=== PATIENT | male | born 1940 | race Caucasian/White ===

== ENCOUNTER 2017-05-24 17:44 | Inpatient (IN) | payer MEDICARE, BC ==
[2017-05-24] VITALS (7 sets, daily range): BP systolic 98–129; BP diastolic 56–73; PULSE 63–75; RESP 16–24; TEMP 98.3–99; O2SAT 96–99
[~2017-05-24] VITALS: Ht 175.3 cm; Wt 66.0 kg
[~2017-05-24 17:44] MED LIST: CHLO25 PO
[2017-05-24] MEDS ORDERED: ADVA100A INH (18:21)
[2017-05-24] MEDS ORDERED: ASPI81CH7 CHEW (18:21)
[2017-05-24] MEDS ORDERED: CARV25TA PO (18:21)
[2017-05-24] MEDS ORDERED: SIMV20TA PO (18:21)
[2017-05-24] MEDS ORDERED: LISI10TA3 PO (18:21)
[2017-05-24] MEDS ORDERED: SODIUM CHLOR 0.9% 1000 ML INJ 1,000 ML IV ONE (18:32)
--- NOTE | 2017-05-24 18:44 | PD ---
HPI Chief Complaint: Syncope/Near-Syncope Time Seen by Provider: 18:28 Travel History International Travel<30 days: No Contact w/Intl Traveler<30days: No Traveled to known affect area: No History of Present Illness HPI Patient is a 76-year-old male with history of coronary artery disease with bypass surgery, alcoholism, presents to ER with complaints of syncope. Patient' s reports that she found him on the tile floor near the kitchen around 5 PM this afternoon. Reports that she was unsure how long he was laying unresponsive on the ground. Reports that when she found him, it took him 3-4 minutes to become responsive. Patient reports that he is unsure what happened today, patient reports that he remembers having lunch and doesn't remember the rest of his day. reports that patient has been having more "drop attacks" recently. EMS reported the patient smells of alcohol, patient denies use of alcohol today. Patient reports that he drinks alcohol intermittently. Patient denies any headache or dizziness at this time. Patient denies any chest pain or shortness of breath. 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 Patient with no complaints at this time. PFSH Past Medical History Cardiac Catheterization: Yes COPD: Yes Coronary Artery Disease: Yes Diminished Hearing: No Hypertension: Yes Immunizations Current: Yes Myocardial Infarction: Yes Tetanus Vaccination: Unknown Past Surgical History Appendectomy: Yes Cardiac Surgery: Yes Coronary Artery Bypass Graft: Yes (X4) Tonsillectomy: Yes Other Surgery: Yes (RIGHT KNEE) Social History Alcohol Use: Yes (5 GLASSES VODKA PER DAY) Tobacco Use: Yes (1/2 PPD) Substance Use: No Allergies-Medications (Allergen,Severity, Reaction): Coded Allergies: codeine (Unverified Allergy, Unknown, 05/24/17) Reported Meds & Prescriptions Reported Meds & Active Scripts Active Reported Advair Diskus Inh (Fluticasone-Salmeterol Inh) 100-50 Mcg/Blist Aer 1 Puff INH BID Rinse mouth after use. Simvastatin 20 Mg Tab 20 Mg PO DAILY Carvedilol 25 Mg Tab 25 Mg PO BID Aspirin Children's (Aspirin) 81 Mg Chew 81 Mg CHEW DAILY Lisinopril 10 Mg Tab 10 Mg PO DAILY Review of Systems General / Constitutional: No: Fever Eyes: No: Visual changes HENT: No: Headaches Cardiovascular: Positive: Syncope, No: Chest Pain or Discomfort, Palpitations, Irregular Rhythm, Dyspnea on exertion, Varicosities, Edema Respiratory: No: Shortness of Breath Gastrointestinal: No: Abdominal Pain Genitourinary: No: Dysuria Musculoskeletal: No: Pain Skin: No Rash Neurologic: No: Weakness Psychiatric: No: Depression Endocrine: No: Polydipsia Hematologic/Lymphatic: No: Easy Bruising Physical Exam Narrative GENERAL: Mild distress SKIN: Focused skin assessment warm/dry. HEAD: Atraumatic. Normocephalic. EYES: Pupils equal and round. No scleral icterus. No injection or drainage. ENT: No nasal bleeding or discharge. Mucous membranes pink and moist. NECK: Trachea midline. No JVD. CARDIOVASCULAR: Regular rate and rhythm. No murmur appreciated. RESPIRATORY: No accessory muscle use. Clear to auscultation. Breath sounds equal bilaterally. GASTROINTESTINAL: Abdomen soft, non-tender, nondistended. Hepatic and splenic margins not palpable. MUSCULOSKELETAL: No obvious deformities. No clubbing. No cyanosis. No edema. NEUROLOGICAL: Awake and alert. No obvious cranial nerve deficits. Motor grossly within normal limits. Normal speech. PSYCHIATRIC: Flat mood and affect, patient appears confused Data Data Last Documented VS Vital Signs Date Time Temp Pulse Resp B/P (MAP) Pulse Ox O2 Delivery O2 Flow Rate FiO2 05/24/17 17:57 98.3 71 16 118/59 (78) 98 Orders Orders Complete Blood Count With Diff (05/24/17 18:32) Comprehensive Metabolic Panel (05/24/17 18:32) Magnesium (Mg) (05/24/17 18:32) B-Type Natriuretic Peptide (05/24/17 18:32) Ckmb (Isoenzyme) Profile (05/24/17 18:32) Troponin I (05/24/17 18:32) Act Partial Throm Time (Ptt) (05/24/17 18:32) Prothrombin Time / Inr (Pt) (05/24/17 18:32) Urinalysis - C+S If Indicated (05/24/17 18:32) Chest, Single Ap (05/24/17 18:32) Ct Brain W/O Iv Contrast(Rout) (05/24/17 18:32) Ct Cerv Spine W/O Contrast (05/24/17 18:32) Ecg Monitoring (05/24/17 18:32) Iv Access Insert/Monitor (05/24/17 18:32) Oximetry (05/24/17 18:32) Sodium Chloride 0.9% Flush (Ns Flush) (05/24/17 18:45) Sodium Chlor 0.9% 1000 Ml Inj (Ns 1000 M (05/24/17 18:32) Drug Screen, Random Urine (05/24/17 18:32) Alcohol (Ethanol) (05/24/17 18:32) MDM Medical Decision Making Medical Screen Exam Complete: Yes Emergency Medical Condition: Yes Medical Record Reviewed: Yes Interpretation(s) EKG 1806: NSR at 67bpm, qt/qtc: 424/440, no acute st or t wave changes Vital Signs Date Time Temp Pulse Resp B/P (MAP) Pulse Ox O2 Delivery O2 Flow Rate FiO2 05/24/17 17:57 98.3 71 16 118/59 (78) 98 Differential Diagnosis Differential includes CVA, TIA, ACS, arrhythmia, orthostatic hypotension, alcoholism, electrolyte abnormality, ICH Narrative Course 76-year-old male who presents to emergency room with his after a syncopal episode at home. Patient was found unresponsive by his on the ground at this time there is kitchen today. Patient reports that he does not remember the events of this afternoon. Patient is a poor historian at baseline, reports only history of coronary artery disease with history of bypass surgery. Patient this time with no headache or dizziness, no chest pain or shortness of breath. Patient present clinical research monitor upon arrival to the emergency room. CT of the head and neck ordered as patient did suffer a fall today. Labs including cardiac enzymes, CBC, CMP, x-ray of the chest ordered. Plan to monitor patient on clinical research monitor. Patient was signed out to oncoming physician at change of shift. Mary Grace Ruvalcaba DO May 24, 2017 18:44
[2017-05-24] MEDS ORDERED: SODIUM CHLORIDE 0.9% FLUSH 10 ML FLUSH IVF PRN (18:45)
[2017-05-24 18:50] LABS: AUTOMATED NEUTROPHIL # 5.6 TH/MM3 (1.8-7.7); BASOPHIL % 0.2 % (0.0-2.0); EOSINOPHIL # 0.1 TH/MM3 (0-0.4); HEMATOCRIT 35.1 % (39.0-51.0); LYMPH % 15.6 % (9.0-44.0); LYMPHOCYTE # 1.1 TH/MM3 (1.0-4.8); MEAN CORPUSCULAR HEMOGLOBIN 34.2 PG (27.0-34.0); MEAN CORPUSCULAR HGB CONC 34.2 % (32.0-36.0); MONO % 6.5 % (0.0-8.0); NEUT % 75.7 % (16.0-70.0); PLATELET COUNT 127 TH/MM3 (150-450); RED BLOOD COUNT 3.51 MIL/MM3 (4.50-5.90); RED CELL DISTRIBUTION WIDTH 11.8 % (11.6-17.2); WHITE BLOOD COUNT 7.3 TH/MM3 (4.0-11.0)
[2017-05-24 18:58] LABS: CHLORIDE 106 MEQ/L (98-107); HEMO FLAGS DIFF FINAL; POTASSIUM 3.1 MEQ/L (3.5-5.1); SODIUM (NA) 141 MEQ/L (136-145)
[2017-05-24 19:03] LABS: ANION GAP 8 MEQ/L (5-15); BICARBONATE 26.6 MEQ/L (21.0-32.0); BLOOD UREA NITROGEN 26 MG/DL (7-18); MAGNESIUM 1.6 MG/DL (1.5-2.5)
[2017-05-24 19:04] LABS: APTT (PATIENT) 25.2 SEC (24.3-30.1); INTERNATIONAL NORMALIZED RATIO 0.9 RATIO
[2017-05-24 19:06] LABS: ALT (GPT) 76 U/L (12-78); AST (GOT) 131 U/L (15-37); GLOMERULAR FILTRATION RATE 46 ML/MIN (>89)
[2017-05-24 19:07] LABS: TOTAL BILIRUBIN ADULT 0.7 MG/DL (0.2-1.0)
[2017-05-24 19:08] LABS: ALCOHOL 217 MG/DL (0-5)
[2017-05-24 19:09] LABS: ALKALINE PHOSPHATASE 136 U/L (45-117)
[2017-05-24 19:19] LABS: CREATINE KINASE 87 U/L (39-308)
--- NOTE | 2017-05-24 19:33 | RADRPT ---
EXAM DATE/TIME: 05/24/2017 19:12 [facility] COMPARISON: CHEST SINGLE AP, November 06, 2015, 18:48. INDICATIONS : Syncopal episode today. MEDICAL HISTORY : Hypertension. SURGICAL HISTORY : None. ENCOUNTER: Initial ACUITY: 1 day PAIN SCORE: 0/10 LOCATION: Bilateral chest FINDINGS: A single view of the chest demonstrates the lungs to be symmetrically aerated without evidence of mas s, infiltrate or effusion. The cardiomediastinal contours are unremarkable. There is evidence of pre vious cardiothoracic surgery. Osseous structures are intact. Old left-sided rib fractures. No signif icant change compared to the prior study. CONCLUSION: No acute disease. No significant change has occurred. Tomas Weber MD on May 24, 2017 at 19:31 Board Certified Radiologist. This report was verified electronically.
[2017-05-24 19:42] LABS: BLOOD, URINE LARGE (NEG); GLUCOSE,URINE NEG (NEG); KETONE, URINE NEG (NEG); NITRITE,URINE NEG (NEG)
--- NOTE | 2017-05-24 19:46 | PD ---
Physical Exam Time Seen by Provider: 19:[address] Ruvalcaba left this patient with me to check the results of the laboratory and make a disposition. Data Data Last Documented VS Vital Signs Date Time Temp Pulse Resp B/P (MAP) Pulse Ox O2 Delivery O2 Flow Rate FiO2 05/24/17 19:25 63 18 128/64 (85) 97 Room Air 05/24/17 17:57 98.3 Orders Orders Complete Blood Count With Diff (05/24/17 18:32) Comprehensive Metabolic Panel (05/24/17:32) Magnesium (Mg) (05/24/17 18:32) B-Type Natriuretic Peptide (05/24/17:32) Ckmb (Isoenzyme) Profile (05/24/17:) Troponin I (05/24/17:) Act Partial Throm Time (Ptt) (05/24/17:32) Prothrombin Time / Inr (Pt) (05/24/17 18:32) Urinalysis - C+S If Indicated (05/24/17 18:32) Chest, Single Ap (05/24/17 18:32) Ct Brain W/O Iv Contrast(Rout) (05/24/17 18:32) Ct Cerv Spine W/O Contrast (05/24/17 18:32) Ecg Monitoring (05/24/17:32) Iv Access Insert/Monitor (05/24/17:32) Oximetry (05/24/17 18:32) Sodium Chloride 0.9% Flush (Ns Flush) (05/24/17 18:45) Sodium Chlor 0.9% 1000 Ml Inj (Ns 1000 M (05/24/17 18:32) Drug Screen, Random Urine (05/24/17 18:32) Alcohol (Ethanol) (05/24/17 18:32) Orthostatic Vital Signs (05/24/17 18:41) Electrocardiogram (05/24/17 18:06) Labs Laboratory Tests Test 05/24/17 18:40 05/24/17 19:30 White Blood Count 7.3 TH/MM3 Red Blood Count 3.51 MIL/MM3 Hemoglobin 12.0 GM/DL Hematocrit 35.1 % Mean Corpuscular Volume 100.0 FL Mean Corpuscular Hemoglobin 34.2 PG Mean Corpuscular Hemoglobin Concent 34.2 % Red Cell Distribution Width 11.8 % Platelet Count 127 TH/MM3 Mean Platelet Volume 8.4 FL Neutrophils (%) (Auto) 75.7 % Lymphocytes (%) (Auto) 15.6 % Monocytes (%) (Auto) 6.5 % Eosinophils (%) (Auto) 2.0 % Basophils (%) (Auto) 0.2 % Neutrophils # (Auto) 5.6 TH/MM3 Lymphocytes # (Auto) 1.1 TH/MM3 Monocytes # (Auto) 0.5 TH/MM3 Eosinophils # (Auto) 0.1 TH/MM3 Basophils # (Auto) 0.0 TH/MM3 CBC Comment DIFF FINAL Differential Comment Prothrombin Time 10.0 SEC Prothromb Time International Ratio 0.9 RATIO Activated Partial Thromboplast Time 25.2 SEC Blood Urea Nitrogen 26 MG/DL Creatinine 1.50 MG/DL Random Glucose 86 MG/DL Total Protein 6.4 GM/DL Albumin 2.9 GM/DL Calcium Level 7.6 MG/DL Magnesium Level 1.6 MG/DL Alkaline Phosphatase 136 U/L Aspartate Amino Transf (AST/SGOT) 131 U/L Alanine Aminotransferase (ALT/SGPT) 76 U/L Total Bilirubin 0.7 MG/DL Sodium Level 141 MEQ/L Potassium Level 3.1 MEQ/L Chloride Level 106 MEQ/L Carbon Dioxide Level 26.6 MEQ/L Anion Gap 8 MEQ/L Estimat Glomerular Filtration Rate 46 ML/MIN Total Creatine Kinase 87 U/L Troponin I LESS THAN 0.02 NG/ML B-Type Natriuretic Peptide 84 PG/ML Ethyl Alcohol Level 217 MG/DL Urine Color YELLOW Urine Turbidity SLIGHT Urine pH 6.0 Urine Specific [place] 1.018 Urine Protein 100 mg/dL Urine Glucose (UA) NEG mg/dL Urine Ketones NEG mg/dL Urine Occult Blood LARGE Urine Nitrite NEG Urine Bilirubin NEG Urine Leukocyte Esterase NEG Urine RBC 0-3 /hpf Urine WBC 3-5 /hpf Urine Squamous Epithelial Cells 0-5 /hpf Urine Hyaline Casts 6-9 /lpf Urine Fine Granular Casts 10-15 /lpf Microscopic Urinalysis Comment CULT NOT INDICATED MDM Medical Record Reviewed: Yes Supervised Visit with ROSALINO: Yes Interpretation(s) The alcohol level is 217. The CBC shows a hemoglobin of 12.0 and hematocrit of 35.1 and platelets of 127,000 but otherwise normal. Differential Diagnosis Alcohol intoxication, electrolyte disorder, hypo-/hyperglycemia, intracranial bleed, renal insufficiency, cardiac dysrhythmia Narrative Course The patient apparently was intoxicated, fell and suffered subdural hematomas. The patient will be admitted to the ICU at [facility], I discussed the patient with Dr. Goode. Diagnosis Primary Impression: Subdural hematoma Additional Impression: Alcohol abuse Admitting Information Admitting Physician Requests: Admit Dwight Willoughby MD May 24, 2017 19:46
--- NOTE | 2017-05-24 19:47 | RADRPT ---
EXAM DATE/TIME: 05/24/2017 19:31 [facility] COMPARISON: CT BRAIN W/O CONTRAST, November 06, 2015, 18:57. INDICATIONS : Syncopal episode. Unresponsive for five minutes. RADIATION DOSE: 57.13 CTDIvol (mGy) MEDICAL HISTORY : Cardiovascular disease. Chronic obstructive pulmonary disease. Hypertension. SURGICAL HISTORY : Tonsillectomy. CABGAppendectomy. ENCOUNTER: Initial ACUITY: 1 day PAIN SCALE: 0/10 LOCATION: cranial TECHNIQUE: Multiple contiguous axial images were obtained of the head. Using automated exposure control and adj ustment of the mA and/or kV according to patient size, radiation dose was kept as low as reasonably a chievable to obtain optimal diagnostic quality images. DICOM format image data is available electro nically for review and comparison. FINDINGS: Today's exam is compared to the prior study. There has been an interval change with development of mcgovern barachnoid hemorrhage located along the base of both frontal lobes, left temporal lobe and left parie jerald area. There is bilateral cortical atrophy. The ventricles are normal in size and midline in posit ion. There is a new subdural hematoma measuring 5 mm in diameter along the left falx near the cerebra l vertex. No significant mass effect or midline shift. Posterior fossa is stable and unremarkable. Th ere is chronic sinus disease in the ethmoid and sphenoid sinuses. The calvarium is grossly intact. CONCLUSION: 1. There is acute subarachnoid hemorrhage along the base of both frontal lobes, left temporal lobe an d left mid parietal area. 2. There is a new acute subdural hematoma along the left falx near the cerebral vertex with 5 mm of s eparation. No significant mass effect or midline shift. Tomas Weber MD on May 24, 2017 at 19:42 Board Certified Radiologist. This report was verified electronically.
[2017-05-24 19:48] LABS: URINE COLOR YELLOW (YELLW/STRAW)
[2017-05-24 19:51] LABS: COMMENT (UR) CULT NOT INDICATED; CULTURE IF INDICATED CULT NOT INDICATED; RBC, URINE 0-3 /hpf (0-3); SQUAMOUS EPITHELIAL CELL URINE 0-5 /hpf (0-5)
--- NOTE | 2017-05-24 19:58 | RADRPT ---
EXAM DATE/TIME: 05/24/2017 19:31 [facility] COMPARISON: No previous studies available for comparison. INDICATIONS : Syncopal episode. Unresponsive for five minutes. RADIATION DOSE: 26.60 CTDIvol (mGy) MEDICAL HISTORY : Cardiovascular disease. Hypertension. Chronic obstructive pulmonary disease. SURGICAL HISTORY : Tonsillectomy. CABGAppendectomy. ENCOUNTER: Initial ACUITY: 1 day PAIN SCALE: 0/10 LOCATION: neck TECHNIQUE: Volumetric scanning of the cervical spine was performed. Multiplanar reconstructions in the sagittal, coronal and oblique axial planes were performed. Using automated exposure control and adjustment o f the mA and/or kV according to patient size, radiation dose was kept as low as reasonably achievable to obtain optimal diagnostic quality images. DICOM format image data is available electronically f or review and comparison. FINDINGS: VERTEBRAE: Normal vertebral body height. There are bony degenerative changes throughout the cervical spine. Ther e is disc space narrowing at C3-4. No acute bony fractures are seen. ALIGNMENT: No evidence of subluxation. C2-C3: The bony spinal canal is normal in size. No evidence of disc bulge or herniation. The neural forami na are bilaterally patent. C3-C4: The bony spinal canal is normal in size. No evidence of disc bulge or herniation. Narrowing of the r ight neural foramina from facet arthritis. Bilateral facet arthritis. C4-C5: The bony spinal canal is normal in size. No evidence of disc bulge or herniation. The neural forami na are bilaterally patent. Bilateral facet arthritis. C5-C6: Mild broad-based bulging disc osteophyte complex. The neural foramina are patent. Bilateral facet art hritis. C6-C7: The bony spinal canal is normal in size. No evidence of disc bulge or herniation. The neural forami na are bilaterally patent. Prominent right facet arthritis. C7-T1: The bony spinal canal is normal in size. No evidence of disc bulge or herniation. The neural forami na are bilaterally patent. CONCLUSION: 1. No acute bony fracture. 2. Primary degenerative changes involving the cervical spine 3. 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 Tomas Weber MD on May 24, 2017 at 19:52 Board Certified Radiologist. This report was verified electronically.
[2017-05-24] MEDS ORDERED: ONDANSETRON HCL 4 MG/2 ML VIAL IV PUSH PRN (21:30)
[2017-05-25] VITALS (14 sets, daily range): BP systolic 121–147; BP diastolic 59–95; PULSE 46–67; RESP 18–32; TEMP 98.7–99.2; O2SAT 95–99
[2017-05-25] MEDS: NS + KCL 20 MEQ INJ 1,000 ML IV SCH ×3 (00:05→15:54)
--- NOTE | 2017-05-25 04:06 | PD.CONS ---
[facility] Service Critical Care Medicine Consult Requested By Dr. Goode Reason for Consult head trauma Primary Care Physician Non-Staff History of Present Illness This is a 76-year-old male with a history of coronary artery disease status post bypass surgery, alcoholism, and prior subdural hematomas who presents after his found him on the tile floor around 5 PM on 05/24. His reported to the ER that it took about 3-4 minutes from become responsive after she found him. The patient does not remember anything after lunch. Patient endorses drinking at least 20-25 ounces of liquor daily. The patient's denied any recent knowledge of his drinking habits. In the ER, patient was found to have acute bifrontal subdural hemorrhage without evidence of mass effect. He is transferred to the intensive care unit for close monitoring. Neurosurgery was consulted and elects conservative management this time. The patient denies any complaints other than headache. Otherwise, the review of systems is negative. Review of Systems Constitutional: DENIES: Diaphoretic episodes, Fatigue, Fever, Chills, Dizziness Eyes: DENIES: Blurred vision, Diplopia, Vision loss, Photosensitivity, Double Vision Respiratory: DENIES: Cough, Wheezing, Hemoptysis, Sputum production, Shortness of breath Cardiovascular: DENIES: Chest pain, Palpitations, Syncope, Dyspnea on Exertion , PND, Lower Extremity Edema Gastrointestinal: DENIES: Abdominal pain, Black stools, Constipation, Diarrhea , Nausea, Vomiting Genitourinary: DENIES: Urinary frequency, Urinary incontinence Musculoskeletal: DENIES: Joint pain, Muscle aches, Stiffness, Back pain, Neck pain Neurologic: COMPLAINS OF: Headache, DENIES: Abnormal gait, Localized weakness, Paresthesias, Seizures, Speech Problems, Tremor, Poor Balance Psychiatric: DENIES: Confusion Past Family Social History Allergies: Coded Allergies: codeine (Unverified Allergy, Unknown, 05/24/17) Past Medical History COPD Coronary artery disease Prior left heart catheterization Hypertension Prior acute myocardial infarction Past Surgical History Appendectomy CABG 4 Tonsillectomy Right knee surgery Reported Medications Advair Diskus Inh (Fluticasone-Salmeterol Inh) 100-50 Mcg/Blist Aer 1 Puff INH BID Rinse mouth after use. Simvastatin 20 Mg Tab 20 Mg PO DAILY Carvedilol 25 Mg Tab 25 Mg PO BID Aspirin Children's (Aspirin) 81 Mg Chew 81 Mg CHEW DAILY Lisinopril 10 Mg Tab 10 Mg PO DAILY Active Ordered Medications See MAR Family History reviewed and found to be noncontributory to his acute illness Social History Endorses at least 5 glasses of vodka daily, smokes at least a half pack per day. Physical Exam Vital Signs Vital Signs Date Time Temp Pulse Resp B/P (MAP) Pulse Ox O2 Delivery O2 Flow Rate FiO2 05/25/17 02:00 60 05/25/17 00:00 55 05/25/17 00:00 99.0 55 24 135/61 (85) 98 05/24/17 22:45 66 05/24/17 22:45 99.0 66 24 98/56 (70) 99 05/24/17 22:10 68 20 118/64 (82) 97 05/24/17 21:35 73 18 118/64 (82) 96 Room Air 05/24/17 20:29 98 Room Air 05/24/17 20:25 75 18 129/73 (91) 98 Room Air 05/24/17 19:25 63 18 128/64 (85) 97 Room Air 05/24/17 18:50 98 Room Air 05/24/17 17:57 98.3 71 16 118/59 (78) 98 Physical Exam GENERAL: Elderly male, lying in bed, evidence of trauma to the forehead HEENT: Normocephalic. Small subcentimeter laceration over the right eyebrow. Pupils equal, round, reactive, conjugate. Mucous membranes are moist NECK: Trachea is midline. There is no JVD. CHEST: And unlabored. Equal chest rise. CARDIOVASCULAR: Normal rate, regular rhythm. Sinus by telemetry ABDOMEN: Soft, nontender, nondistended. No guarding. MUSCULOSKELETAL: Pulses 2+. No peripheral edema. There is a large skin tear approximately 4 cm over the dorsum of the right wrist. As is dressed in a Kerlix bandage NEUROLOGICAL: RASS 0. GCS 15. Alert and oriented. Follows commands in all 4 extremity. Muscle skeletal strength 5/5 in all 4 extremity. No gross focal sensory Laboratory Laboratory Tests Test 05/24/17 18:40 05/24/17 19:30 05/24/17 23:59 White Blood Count 7.3 Red Blood Count 3.51 Hemoglobin 12.0 Hematocrit 35.1 Mean Corpuscular Volume 100.0 Mean Corpuscular Hemoglobin 34.2 Mean Corpuscular Hemoglobin Concent 34.2 Red Cell Distribution Width 11.8 Platelet Count 127 Mean Platelet Volume 8.4 Neutrophils (%) (Auto) 75.7 Lymphocytes (%) (Auto) 15.6 Monocytes (%) (Auto) 6.5 Eosinophils (%) (Auto) 2.0 Basophils (%) (Auto) 0.2 Neutrophils # (Auto) 5.6 Lymphocytes # (Auto) 1.1 Monocytes # (Auto) 0.5 Eosinophils # (Auto) 0.1 Basophils # (Auto) 0.0 CBC Comment DIFF FINAL Differential Comment Prothrombin Time 10.0 Prothromb Time International Ratio 0.9 Activated Partial Thromboplast Time 25.2 Blood Urea Nitrogen 26 Creatinine 1.50 Random Glucose 86 Total Protein 6.4 Albumin 2.9 Calcium Level 7.6 Magnesium Level 1.6 Alkaline Phosphatase 136 Aspartate Amino Transf (AST/SGOT) 131 Alanine Aminotransferase (ALT/SGPT) 76 Total Bilirubin 0.7 Sodium Level 141 Potassium Level 3.1 Chloride Level 106 Carbon Dioxide Level 26.6 Anion Gap 8 Estimat Glomerular Filtration Rate 46 Total Creatine Kinase 87 Troponin I LESS THAN 0.02 B-Type Natriuretic Peptide 84 Ethyl Alcohol Level 217 Urine Color YELLOW Urine Turbidity SLIGHT Urine pH 6.0 Urine Specific [place] 1.018 Urine Protein 100 Urine Glucose (UA) NEG Urine Ketones NEG Urine Occult Blood LARGE Urine Nitrite NEG Urine Bilirubin NEG Urine Leukocyte Esterase NEG Urine RBC 0-3 Urine WBC 3-5 Urine Squamous Epithelial Cells 0-5 Urine Hyaline Casts 6-9 Urine Fine Granular Casts 10-15 Microscopic Urinalysis Comment CULT NOT INDICATED Urine Opiates Screen NEG Urine Barbiturates Screen NEG Urine Amphetamines Screen NEG Urine Benzodiazepines Screen NEG Urine Cocaine Screen NEG Urine Cannabinoids Screen NEG Nasal Screen MRSA (PCR) MRSA NOT DETECTED Result Diagram: 05/24/17183905/24/171839 Imaging Last Impressions Head CT 05/24/171831 Signed Impressions: Service Date/Time: Wednesday, May 24, 2017 19:31 - CONCLUSION: 1. There is acute subarachnoid hemorrhage along the base of both frontal lobes, left temporal lobe and left mid parietal area. 2. There is a new acute subdural hematoma along the left falx near the cerebral vertex with 5 mm of separation. No significant mass effect or midline shift. Tomas Weber MD Chest X-Ray 05/24/171831 Signed Impressions: Service Date/Time: Wednesday, May 24, 2017 19:12 - CONCLUSION: No acute disease. No significant change has occurred. Tomas Weber MD Cervical Spine CT 05/24/171831 Signed Impressions: Service Date/Time: Wednesday, May 24, 2017 19:31 - CONCLUSION: 1. No acute bony fracture. 2. Primary degenerative changes involving the cervical spine 3. 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 Tomas Weber MD Assessment and Plan Assessment and Plan Assessment: 76-year-old male with alcoholism and prior subdural hemorrhages who presents with acute subdural hemorrhage secondary to mechanical fall. Most likely his difficulty in remembering earlier events secondary to his intoxication, as his alcohol level was elevated 215 on arrival. We will admit him to the neuro ICU for frequent neuro checks and obtain serial head CT. Agree with plan for conservative management given lack of neuro deficits. Acute Subdural Hematoma - frequent neuro checks - serial head CT - avoid anticoagulation EtOH Abuse - iv thiamine - watch for withdraws Hypertension - goal sbp < 140 - use labetalol/hydralazine today for goal. may need to transition back to home meds. SCDs Pepcid Admit to ICU for close monitoring. Code Status Full Code Cristopher Loza MD May 25, 2017 04:06
--- NOTE | 2017-05-25 04:36 | RADRPT ---
EXAM DATE/TIME: 05/25/2017 04:19 [facility] COMPARISON: CT BRAIN W/O CONTRAST, November 06, 2015, 18:57. CT BRAIN W/O CONTRAST, May 24, 2017, 19:31. INDICATIONS : Follow up bleed. RADIATION DOSE: 33.51 CTDIvol (mGy) MEDICAL HISTORY : Cardiovascular disease. Myocardial infarction. Chronic obstructive pulmonary disease.Coronary artery disease. Hypertension. SURGICAL HISTORY : CABG Appendectomy.Hernia repair. ENCOUNTER: Subsequent ACUITY: 1 day PAIN SCALE: 0/10 LOCATION: cranial TECHNIQUE: Multiple contiguous axial images were obtained of the head. Using automated exposure control and adj ustment of the mA and/or kV according to patient size, radiation dose was kept as low as reasonably a chievable to obtain optimal diagnostic quality images. DICOM format image data is available electro nically for review and comparison. FINDINGS: Parafalcine and para tentorial blood is stable. There has been slight interval evolution and worsenin g of left temporal parenchymal contusion. Right orbitofrontal blood is stable. There is no evidence o f brain shaft. No new acute findings. CONCLUSION: Slight interval additional evolution of left temporal parenchymal contusion. Yonas Camp MD on May 25, 2017 at 4:32 Board Certified Radiologist. This report was verified electronically.
[2017-05-25] MEDS ORDERED: MULTIVITAMIN INJ 10 ML, THIAMINE INJ 100 MG, FOLIC ACID INJ 1 MG in SODIUM CHLOR 0.45% ... IV ONE (05:15)
[2017-05-25] MEDS ORDERED: hydrALAZINE HCL 20 MG/ML VIAL IV PUSH PRN (05:15)
[2017-05-25] MEDS ORDERED: LABETALOL HCL 100 MG/20 ML VIAL IV PUSH PRN (05:15)
[2017-05-25 06:13] LABS: ANION GAP 11 MEQ/L (5-15); AST (GOT) 111 U/L (15-37); BICARBONATE 24.4 MEQ/L (21.0-32.0); BLOOD UREA NITROGEN 24 MG/DL (7-18); CHLORIDE 108 MEQ/L (98-107); GLOMERULAR FILTRATION RATE 67 ML/MIN (>89); POTASSIUM 3.6 MEQ/L (3.5-5.1); SODIUM (NA) 143 MEQ/L (136-145)
[2017-05-25 06:17] LABS: ALKALINE PHOSPHATASE 125 U/L (45-117); ALT (GPT) 67 U/L (12-78); TOTAL BILIRUBIN ADULT 0.7 MG/DL (0.2-1.0)
[2017-05-25] MEDS: FOLIC ACID 1 MG TAB PO SCH (08:14)
[2017-05-25] MEDS: MULTIVITAMINS/MINERALS THERAPEUTIC TAB PO SCH (08:14)
[2017-05-25] MEDS: PANTOPRAZOLE SOD 40 MG DELAYED RELEASE TAB PO SCH (08:14)
[2017-05-25] MEDS: MULTIVITAMIN TAB PO SCH (08:15)
[2017-05-25] MEDS ORDERED: DOCUSATE SODIUM 100 MG CAP PO SCH (09:00)
[2017-05-25] MEDS ORDERED: THIAMINE HCL 100 MG TAB PO SCH (09:00)
[2017-05-25] MEDS ORDERED: SODIUM CHLORIDE 0.9% FLUSH 10 ML FLUSH IV FLUSH PRN (15:15)
[2017-05-25] MEDS ORDERED: LACTULOSE SYRUP 20 GM/30 ML CUP PO PRN (15:15)
[2017-05-25] MEDS ORDERED: RESP: ALBUTEROL 2.5 MG/3 ML NEB (PRN) INH (15:15)
[2017-05-25] MEDS ORDERED: BISACODYL 10 MG SUPP RECTAL PRN (15:15)
[2017-05-25] MEDS ORDERED: ACETAMINOPHEN 325 MG TAB PO PRN ×2 (15:15→16:15)
[2017-05-25] MEDS ORDERED: ONDANSETRON HCL 4 MG/2 ML VIAL IV PUSH PRN (15:15)
[2017-05-25] MEDS ORDERED: CHLORHEXIDINE GLUCONATE 2 % 1 PACK (2 CLOTHS) TOP PRN (15:15)
[2017-05-25] MEDS ORDERED: SENNOSIDES 8.6 MG TAB PO PRN (15:15)
[2017-05-25] MEDS ORDERED: MAGNESIUM HYDROXIDE SUSP 30 ML CUP PO PRN (15:15)
[2017-05-25] MEDS ORDERED: MISCELLANEOUS NURSING INFORMATION XX SCH (15:15)
--- NOTE | 2017-05-25 18:39 | HHI.HP ---
HPI Service Neurosurgery Primary Care Physician Non-Staff Chief Complaint: Headache History of Present Illness 76-year-old male who states that he passed out and fell last evening. He recalls feeling faint and starting to fall. No definite seizure activity reported. He states that he has had several previous similar episodes, the last one being a few months ago. His was present at the time of his fall, and indicated that the patient was unresponsive for approximately 4 minutes. He presently complains of headache and mild nausea. No significant vertigo. No blurred vision or diplopia. No significant pain weakness or numbness in the extremities. He does have a history of significant alcohol use. Review of Systems Constitutional: COMPLAINS OF: Dizziness, DENIES: Fever Eyes: DENIES: Blurred vision, Diplopia Ears, nose, mouth, throat: DENIES: Hearing loss, Vertigo Respiratory: DENIES: Cough, Shortness of breath Cardiovascular: DENIES: Chest pain, Palpitations Gastrointestinal: COMPLAINS OF: Nausea, DENIES: Abdominal pain, Vomiting Genitourinary: DENIES: Urinary incontinence Musculoskeletal: COMPLAINS OF: Muscle aches, Back pain, DENIES: Neck pain Hematologic/lymphatic: COMPLAINS OF: Bruising Neurologic: COMPLAINS OF: Headache, DENIES: Abnormal gait Psychiatric: DENIES: Confusion Past Family Social History Allergies: Coded Allergies: codeine (Unverified Allergy, Unknown, 05/24/17) Past Medical History Hypertension CAD COPD Prior [place] Past Surgical History History of CABG Right knee surgery Tonsillectomy Appendectomy Cardiac Reported Medications Reported Meds & Active Scripts Active Reported Advair Diskus Inh (Fluticasone-Salmeterol Inh) 100-50 Mcg/Blist Aer 1 Puff INH BID Rinse mouth after use. Simvastatin 20 Mg Tab 20 Mg PO DAILY Carvedilol 25 Mg Tab 25 Mg PO BID Aspirin Children's (Aspirin) 81 Mg Chew 81 Mg CHEW DAILY Lisinopril 10 Mg Tab 10 Mg PO DAILY Family History No history of significant cardiac, pulmonary disease, cancer, diabetes in the family Social History He drinks 3-5 glasses of vodka a day. Smokes one half pack cigarettes per day Physical Exam Vital Signs Vital Signs Date Time Temp Pulse Resp B/P (MAP) Pulse Ox O2 Delivery O2 Flow Rate FiO2 05/25/17 18:00 67 05/25/17 16:00 54 05/25/17 16:00 98.7 54 18 147/64 (91) 99 05/25/17 14:00 48 05/25/17 12:00 46 05/25/17 12:00 99.2 46 19 124/95 (105) 98 05/25/17 10:00 50 05/25/17 08:56 98 21 05/25/17 08:00 98.8 50 32 146/67 (93) 95 05/25/17 08:00 50 05/25/17 06:00 49 05/25/17 04:00 63 05/25/17 04:00 99.1 63 24 121/59 (79) 98 05/25/17 02:00 60 05/25/17 00:00 55 05/25/17 00:00 99.0 55 24 135/61 (85) 98 05/24/17 22:45 66 05/24/17 22:45 99.0 66 24 98/56 (70) 99 05/24/17 22:10 68 20 118/64 (82) 97 05/24/17 21:35 73 18 118/64 (82) 96 Room Air 05/24/17 20:29 98 Room Air 05/24/17 20:25 75 18 129/73 (91) 98 Room Air 05/24/17 19:25 63 18 128/64 (85) 97 Room Air 05/24/17 18:50 98 Room Air Physical Exam GENERAL: This is a well-nourished, well-developed patient, no apparent distress. SKIN: No abrasions, contusion, rash noted. Skin warm and dry. HEAD: Small laceration in the right supraorbital region. Normocephalic. No temporal or scalp tenderness. EYES: Sclerae are clear and nonicteric ENT: No facial edema or ecchymosis. No periorbital edema. No CSF otorrhea or rhinorrhea. No palpable facial fracture or deformity. Positive blood in the left external auditory canal NECK: Trachea midline. No cervical spine tenderness. Cervical collar in place CARDIOVASCULAR: Regular rate and rhythm without murmurs, gallops, or rubs. RESPIRATORY: Clear to auscultation. Breath sounds equal bilaterally. No wheezes , rales, or rhonchi. GASTROINTESTINAL: Abdomen soft, non-tender, nondistended. No hepato-splenomegaly , or palpable masses. No guarding. MUSCULOSKELETAL: Extremities without cyanosis, or edema. No joint tenderness, or edema noted. No calf tenderness. Dorsalis pedis pulses 2+ bilateral NEUROLOGICAL: Awake and alert Oriented X 3 Speech is somewhat slow but clear Conversant and appropriate Follow simple commands well Answers questions appropriately Anita mild diminished judgment and insight Recent and remote memory are reasonably intact, although he does not recall everything that happened to him last evening. No evidence of anxiety or depression Pupils are equal and reactive to accommodation. Extra-ocular movements, visual harry to confrontation, facial sensorimotor, tongue, palate, sternocleidomastoid testing, hearing to finger rub testing, and bilateral shoulder shrug are all intact. Sensation is intact to light touch in all extremities Strength normal major flexion and extension groups all extremities Ariela's absent bilaterally No ankle clonus Plantar responses absent bilateral Fine motor movements intact upper extremities Laboratory Laboratory Tests Test 05/24/17 18:40 05/24/17 19:30 05/24/17 23:59 05/25/17 05:02 White Blood Count 7.3 Red Blood Count 3.51 Hemoglobin 12.0 Hematocrit 35.1 Mean Corpuscular Volume 100.0 Mean Corpuscular Hemoglobin 34.2 Mean Corpuscular Hemoglobin Concent 34.2 Red Cell Distribution Width 11.8 Platelet Count 127 Mean Platelet Volume 8.4 Neutrophils (%) (Auto) 75.7 Lymphocytes (%) (Auto) 15.6 Monocytes (%) (Auto) 6.5 Eosinophils (%) (Auto) 2.0 Basophils (%) (Auto) 0.2 Neutrophils # (Auto) 5.6 Lymphocytes # (Auto) 1.1 Monocytes # (Auto) 0.5 Eosinophils # (Auto) 0.1 Basophils # (Auto) 0.0 CBC Comment DIFF FINAL Differential Comment Prothrombin Time 10.0 Prothromb Time International Ratio 0.9 Activated Partial Thromboplast Time 25.2 Blood Urea Nitrogen 26 24 Creatinine 1.50 1.08 Random Glucose 86 63 Total Protein 6.4 5.8 Albumin 2.9 2.6 Calcium Level 7.6 7.6 Magnesium Level 1.6 Alkaline Phosphatase 136 125 Aspartate Amino Transf (AST/SGOT) 131 111 Alanine Aminotransferase (ALT/SGPT) 76 67 Total Bilirubin 0.7 0.7 Sodium Level 141 143 Potassium Level 3.1 3.6 Chloride Level 106 108 Carbon Dioxide Level 26.6 24.4 Anion Gap 8 11 Estimat Glomerular Filtration Rate 46 67 Total Creatine Kinase 87 Troponin I LESS THAN 0.02 B-Type Natriuretic Peptide 84 Ethyl Alcohol Level 217 Urine Color YELLOW Urine Turbidity SLIGHT Urine pH 6.0 Urine Specific [place] 1.018 Urine Protein 100 Urine Glucose (UA) NEG Urine Ketones NEG Urine Occult Blood LARGE Urine Nitrite NEG Urine Bilirubin NEG Urine Leukocyte Esterase NEG Urine RBC 0-3 Urine WBC 3-5 Urine Squamous Epithelial Cells 0-5 Urine Hyaline Casts 6-9 Urine Fine Granular Casts 10-15 Microscopic Urinalysis Comment CULT NOT INDICATED Urine Opiates Screen NEG Urine Barbiturates Screen NEG Urine Amphetamines Screen NEG Urine Benzodiazepines Screen NEG Urine Cocaine Screen NEG Urine Cannabinoids Screen NEG Nasal Screen MRSA (PCR) MRSA NOT DETECTED Result Diagram: 05/24/17 1840 05/25/17 0502 Imaging 05/24/17 and 05/25/17 CT scan head images as well as 05/24/[address] scan head images are all reviewed. The follow-up CT scan head 05/25/17 reveals a mild increase in the left temporal parenchymal contusion with relatively stable right greater than left frontal contusion and subarachnoid hemorrhage without significant mass effect. No hydrocephalus or pneumocephalus noted. Head CT 05/25/17 0500 Signed Impressions: Service Date/Time: Thursday, May 25, 2017 04:19 - CONCLUSION: Slight interval additional evolution of left temporal parenchymal contusion. Yonas Camp MD Chest X-Ray 05/24/171831 Signed Impressions: Service Date/Time: Wednesday, May 24, 2017 19:12 - CONCLUSION: No acute disease. No significant change has occurred. Tomas Weber MD Cervical Spine CT 05/24/171831 Signed Impressions: Service Date/Time: Wednesday, May 24, 2017 19:31 - CONCLUSION: 1. No acute bony fracture. 2. Primary degenerative changes involving the cervical spine 3. 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 MD Carlos Sunshine VTE Risk Assessment Capparvez VTE Risk Assessment: No/Low Risk (score <= 1) VTE Pharm Contraindication: Hemorrhage Caprini Risk Assessment Model Point Value = 1 Point Value = 2 Point Value = 3 Point Value = 5 Age 41-60 Minor surgery BMI > 25 kg/m2 Swollen legs Varicose veins or History of unexplained or recurrent spontaneous Oral contraceptives or hormone replacement Sepsis (< 1 month) Serious lung disease, including pneumonia (< 1 month) Abnormal pulmonary function Acute myocardial infarction Congestive heart failure (< 1 month) History of inflammatory bowel disease Medical patient at bed rest Age 61-74 Arthroscopic surgery Major open surgery (> 45 min) Laparoscopic surgery (> 45 min) Malignancy Confined to bed (> 72 hours) Immobilizing plaster cast Central venous access Age >= 75 History of VTE Family history of VTE Factor V Leiden Prothrombin [id number] Lupus anticoagulant Anticardiolipin antibodies Elevated serum homocysteine Heparin-induced thrombocytopenia Other congenital or acquired thrombophilia Stroke (< 1 month) Elective arthroplasty Hip, pelvis, or leg fracture Acute spinal cord injury (< 1 month) Prophylaxis Regimen Total Risk Factor Score Risk Level Prophylaxis Regimen 0-1 Low Early ambulation 2 Moderate Order ONE of the following: *Sequential Compression Device (SCD) *Heparin 5000 units SQ BID 3-4 Higher Order ONE of the following medications: *Heparin 5000 units SQ TID *Enoxaparin/Lovenox 40 mg SQ daily (WT < 150 kg, CrCl > 30 mL/min) *Enoxaparin/Lovenox 30 mg SQ daily (WT < 150 kg, CrCl > 10-29 mL/min) *Enoxaparin/Lovenox 30 mg SQ BID (WT < 150 kg, CrCl > 30 mL/min) AND/OR *Sequential Compression Device (SCD) 5 or more Highest Order ONE of the following medications: *Heparin 5000 units SQ TID (Preferred with Epidurals) *Enoxaparin/Lovenox 40 mg SQ daily (WT < 150 kg, CrCl > 30 mL/min) *Enoxaparin/Lovenox 30 mg SQ daily (WT < 150 kg, CrCl > 10-29 mL/min) *Enoxaparin/Lovenox 30 mg SQ BID (WT < 150 kg, CrCl > 30 mL/min) AND *Sequential Compression Device (SCD) Assessment and Plan Assessment and Plan Impression: 1. Traumatic brain injury 2. Alcohol abuse 3. Tobacco abuse 4. Hypertension 5. History of CAD 6. History COPD Attending Statement Findings were discussed with the patient. He has been admitted to the surgical intensive care unit. Continue close vital signs and neurologic checks Follow-up CT scan depending on clinical course Probable transfer to regular floor 05/26/17 if remains neurologically stable Advance diet Advanced out of bed with assistance Physical therapy Non-chemical DVT prophylaxis Ulcer prophylaxis Thiamine supplement Weapons Specialist consult Cory Goode MD May 25, 2017 18:39
[2017-05-25] MEDS: SODIUM CHLORIDE 0.9% FLUSH 10 ML FLUSH IV FLUSH SCH (20:31)
[2017-05-25] MEDS: DOCUSATE SODIUM 50 MG/SENNA 8.6 MG TAB PO SCH (20:31)
[2017-05-25] MEDS: BUDESONIDE-FORMOTEROL 80/4.5 MCG INHALER INH SCH (20:31)
--- NOTE | 2017-05-25 23:48 | EKG ---
Date Performed: 05/24/2017 Time Performed: 18:06:33 PTAGE: 76 years EKG: Sinus rhythm LOW QRS VOLTAGE IN EXTREMITY LEADS BORDERLINE ECG INTERPRETATION BASED ON A DEFAULT AGE OF 40 YEARS Compared to the PREVIOUS TRACING from 11/06/15, no significant change DOCTOR: Kenny Gilman Interpretating Date/Time 05/25/2017 23:47:30
[2017-05-26] VITALS (12 sets, daily range): BP systolic 132–161; BP diastolic 63–70; PULSE 47–73; RESP 17–22; TEMP 98.3–99.4; O2SAT 94–100
[2017-05-26] MEDS: THIAMINE INJ 100 MG in SODIUM CHLORIDE 0.9% INJ 100 ML IV SCH (03:29)
[2017-05-26] MEDS: NS + KCL 20 MEQ INJ 1,000 ML IV SCH ×3 (03:30→23:30)
[2017-05-26] MEDS: CHLORHEXIDINE GLUCONATE 2 % 1 PACK (2 CLOTHS) TOP SCH (03:33)
[2017-05-26] MEDS: DOCUSATE SODIUM 50 MG/SENNA 8.6 MG TAB PO SCH ×2 (09:00→20:11)
[2017-05-26] MEDS: SODIUM CHLORIDE 0.9% FLUSH 10 ML FLUSH IV FLUSH SCH ×2 (09:00→20:13)
[2017-05-26] MEDS: MULTIVITAMIN TAB PO SCH (09:34)
[2017-05-26] MEDS: PANTOPRAZOLE SOD 40 MG DELAYED RELEASE TAB PO SCH (09:34)
[2017-05-26] MEDS: PRAVASTATIN SOD 40 MG TAB PO SCH (09:34)
[2017-05-26] MEDS: FOLIC ACID 1 MG TAB PO SCH (09:34)
[2017-05-26] MEDS: LISINOPRIL 10 MG TAB PO SCH (09:34)
[2017-05-26] MEDS: MULTIVITAMINS/MINERALS THERAPEUTIC TAB PO SCH (09:34)
[2017-05-26] MEDS: BUDESONIDE-FORMOTEROL 80/4.5 MCG INHALER INH SCH ×2 (09:37→20:12)
--- NOTE | 2017-05-26 09:53 | HHI.NSPN ---
(Patel Mueller) History Chief Complaint: Headache and dizziness. (Patel Mueller) Interval History 05/25: 76-year-old male who states that he passed out and fell last evening. He recalls feeling faint and starting to fall. No definite seizure activity reported. He states that he has had several previous similar episodes, the last one being a few months ago. His was present at the time of his fall, and indicated that the patient was unresponsive for approximately 4 minutes. He presently complains of headache and mild nausea. No significant vertigo. No blurred vision or diplopia. No significant pain weakness or numbness in the extremities. He does have a history of significant alcohol use. 05/26: The patient is awake and alert when seen this morning. He does report a headache as well as some dizziness when he first sits or stands up. He continues to have difficulty finding the correct word and has obvious frustration with it. (Patel Mueller) System Review Comments Constitutional: Patient denies any fever or chills. HEENT: Patient complains of aching to the right forehead and supraorbital region where he struck it. He denies any visual or hearing problems. Respiratory: Patient with some shortness of breath and productive cough secondary to his COPD. He denies any wheezing. Cardiovascular: Patient denies any chest pain, palpitations or irregular heartbeat. Gastrointestinal: Patient denies any abdominal pain, nausea, vomiting or incontinence of stool. Genitourinary: Patient denies any incontinence of urine. Musculoskeletal: Patient denies any pain to the neck, back or extremities or weakness to the extremities. Integumentary: Patient complains of bruising to the forehead and face as well as to the extremities. Neurologic: Patient complains of a headache as well as dizziness when he first sits up or stands. He indicates he has difficulty finding the correct word at times. He denies any numbness or tingling. (Patel Mueller) Exam Results 05/24/17 05/24/17 05/25/17 05/25/17/12/17 10/12/17 06:00 18:00 06:00 18:00 06:00 18:00 Intake Total 2000 ml 1225 ml 341 ml Balance 2000 ml 1225 ml 341 ml Intake Oral 240 ml IV Total 2000 ml 1225 ml 101 ml # Voids 4 2 # Bowel Movements 2 2 Vital Signs Date Time Temp Pulse Resp B/P (MAP) Pulse Ox O2 Delivery O2 Flow Rate FiO2 05/26/17 07:35 97 21 05/26/17 06:00 52 05/26/17 04:00 73 05/26/17 04:00 98.9 73 22 142/70 (94) 100 05/26/17 02:00 65 05/26/17 00:00 47 05/26/17 00:00 99.4 47 20 139/65 (89) 98 05/25/17 22:00 58 05/25/17 20:57 98 05/25/17 20:00 47 05/25/17 20:00 99.2 47 24 127/60 (82) 99 05/25/17 18:00 67 05/25/17 16:00 54 05/25/17 16:00 98.7 54 18 147/64 (91) 99 05/25/17 14:00 48 05/25/17 12:00 46 05/25/17 12:00 99.2 46 19 124/95 (105) 98 05/25/17 10:00 50 05/25/17 08:56 98 21 05/25/17 08:00 98.8 50 32 146/67 (93) 95 05/25/17 08:00 50 05/25/17 06:00 49 05/25/17 04:00 63 05/25/17 04:00 99.1 63 24 121/59 (79) 98 05/25/17 02:00 60 05/25/17 00:00 55 05/25/17 00:00 99.0 55 24 135/61 (85) 98 05/24/17 22:45 66 05/24/17 22:45 99.0 66 24 98/56 (70) 99 05/24/17 22:10 68 20 118/64 (82) 97 05/24/17 21:35 73 18 118/64 (82) 96 Room Air 05/24/17 20:29 98 Room Air 05/24/17 20:25 75 18 129/73 (91) 98 Room Air 05/24/17 19:25 63 18 128/64 (85) 97 Room Air 05/24/17 18:50 98 Room Air 05/24/17 17:57 98.3 71 16 118/59 (78) 98 (Patel Mueller) Physical Examination GENERAL: The patient is awake & alert. He readily interacts & smiles. His affect is essentially normal. He is not in any apparent distress. SKIN: Warm & dry, ecchymosis to the right forehead and periorbital region w/a small abrasion to the lateral forehead, small skin tear to the right hand w/ intact dressing, multiple ecchymotic areas of varying sizes to the upper extremities of indeterminant ages. HEENT: Normocephalic, ecchymosis & TTP to the right forehead and periorbital region w/a small abrasion to the lateral forehead. PERRLA 3mm brisk, EOMI. No otorrhea or rhinorrhea. MMM & pink, tongue midline to protrusion. NECK: Full active ROM w/o pain, no JVD, trachea midline. CARDIOVASCULAR: S1S2 w/RRR w/o M/G/R, radial & pedal pulses 2+ bilaterally, cap refill < 2 sec, no pedal edema. Monitor is sinus bradycardia w/o any ectopy noted. RESPIRATORY: Essentially clear but w/inspiratory wheezes bilaterally & expiratory wheezes on the left, equal excursion, nonlaboured, on RA. GASTROINTESTINAL: Abdomen soft, nontender, positive bowel sounds. MUSCULOSKELETAL: SOSA w/o difficulty, no evident deformity or clubbing. NEUROLOGICAL: Awake, alert & oriented to person & time, he knew he was in a hospital and picked [facility] out in a list, and he was able to pick the president from a list. Speech clear but slow w/difficulty finding words. Follows simple commands w/o difficulty. CN II-XII appear grossly intact. Sensation intact to light touch to all extremities. Motor strength is 5/5 to all major flexion & extension muscle groups. (Patel Mueller) Lab, Micro, Other Results Recent Impressions Head CT 05/25/17 0500 Signed Impressions: Service Date/Time: Thursday, May 25, 2017 04:19 - CONCLUSION: Slight interval additional evolution of left temporal parenchymal contusion. Yonas Camp MD Head CT 05/24/171831 Signed Impressions: Service Date/Time: Wednesday, May 24, 2017 19:31 - CONCLUSION: 1. There is acute subarachnoid hemorrhage along the base of both frontal lobes, left temporal lobe and left mid parietal area. 2. There is a new acute subdural hematoma along the left falx near the cerebral vertex with 5 mm of separation. No significant mass effect or midline shift. Tomas Weber MD Chest X-Ray 05/24/171831 Signed Impressions: Service Date/Time: Wednesday, May 24, 2017 19:12 - CONCLUSION: No acute disease. No significant change has occurred. Tomas Weber MD Cervical Spine CT 05/24/171831 Signed Impressions: Service Date/Time: Wednesday, May 24, 2017 19:31 - CONCLUSION: 1. No acute bony fracture. 2. Primary degenerative changes involving the cervical spine 3. 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 Tomas Weber MD Laboratory Tests Test 05/24/17 18:40 05/24/17 19:30 05/24/17 23:59 05/25/17 05:02 White Blood Count 7.3 TH/MM3 Red Blood Count 3.51 MIL/MM3 Hemoglobin 12.0 GM/DL Hematocrit 35.1 % Mean Corpuscular Volume 100.0 FL Mean Corpuscular Hemoglobin 34.2 PG Mean Corpuscular Hemoglobin Concent 34.2 % Red Cell Distribution Width 11.8 % Platelet Count 127 TH/MM3 Mean Platelet Volume 8.4 FL Neutrophils (%) (Auto) 75.7 % Lymphocytes (%) (Auto) 15.6 % Monocytes (%) (Auto) 6.5 % Eosinophils (%) (Auto) 2.0 % Basophils (%) (Auto) 0.2 % Neutrophils # (Auto) 5.6 TH/MM3 Lymphocytes # (Auto) 1.1 TH/MM3 Monocytes # (Auto) 0.5 TH/MM3 Eosinophils # (Auto) 0.1 TH/MM3 Basophils # (Auto) 0.0 TH/MM3 CBC Comment DIFF FINAL Differential Comment Prothrombin Time 10.0 SEC Prothromb Time International Ratio 0.9 RATIO Activated Partial Thromboplast Time 25.2 SEC Blood Urea Nitrogen 26 MG/DL 24 MG/DL Creatinine 1.50 MG/DL 1.08 MG/DL Random Glucose 86 MG/DL 63 MG/DL Total Protein 6.4 GM/DL 5.8 GM/DL Albumin 2.9 GM/DL 2.6 GM/DL Calcium Level 7.6 MG/DL 7.6 MG/DL Magnesium Level 1.6 MG/DL Alkaline Phosphatase 136 U/L 125 U/L Aspartate Amino Transf (AST/SGOT) 131 U/L 111 U/L Alanine Aminotransferase (ALT/SGPT) 76 U/L 67 U/L Total Bilirubin 0.7 MG/DL 0.7 MG/DL Sodium Level 141 MEQ/L 143 MEQ/L Potassium Level 3.1 MEQ/L 3.6 MEQ/L Chloride Level 106 MEQ/L 108 MEQ/L Carbon Dioxide Level 26.6 MEQ/L 24.4 MEQ/L Anion Gap 8 MEQ/L 11 MEQ/L Estimat Glomerular Filtration Rate 46 ML/MIN 67 ML/MIN Total Creatine Kinase 87 U/L Troponin I LESS THAN 0.02 NG/ML B-Type Natriuretic Peptide 84 PG/ML Ethyl Alcohol Level 217 MG/DL Urine Color YELLOW Urine Turbidity SLIGHT Urine pH 6.0 Urine Specific [place] 1.018 Urine Protein 100 mg/dL Urine Glucose (UA) NEG mg/dL Urine Ketones NEG mg/dL Urine Occult Blood LARGE Urine Nitrite NEG Urine Bilirubin NEG Urine Leukocyte Esterase NEG Urine RBC 0-3 /hpf Urine WBC 3-5 /hpf Urine Squamous Epithelial Cells 0-5 /hpf Urine Hyaline Casts 6-9 /lpf Urine Fine Granular Casts 10-15 /lpf Microscopic Urinalysis Comment CULT NOT INDICATED Urine Opiates Screen NEG Urine Barbiturates Screen NEG Urine Amphetamines Screen NEG Urine Benzodiazepines Screen NEG Urine Cocaine Screen NEG Urine Cannabinoids Screen NEG Nasal Screen MRSA (PCR) MRSA NOT DETECTED (Patel Mueller) Medical Decision Making Impression and Plan Impression: 1. Traumatic brain injury 2. Alcohol abuse 3. Tobacco abuse 4. Hypertension 5. History of CAD 6. History COPD Repeat CT brain yesterday w/ slight worsening of the left temporal parenchymal contusion, o/w stable. Patient is doing well this morning although still w/significant expressive aphasia, sensory & motor intact. Plan: Critical care management per Staffing Account Manager. Neuro checks. Stat CT brain for any worsening neuro status. Mobilise patient w/assistance as needed. PT eval & tx. ST eval & tx. Non-chemical DVT prophylaxis. Ulcer prophylaxis. Thiamine supplement. Patient is able to be transferred to a regular med/surg floor when medically indicated. (Patel Mueller) Attending Statement I have personally seen and examined the patient on the date of this note. Pertinent documentation and study results have been reviewed by the undersigned. I have personally developed the treatment plan and performed medical decision making. Agree with findings, exam, and treatment plan as noted above. On my examination today, patient has clear respirations, cardiac exam regular. Abdomen is soft and nontender He remains awake with mild lethargy. Mild slowing of speech and thought processes. Cranial nerve and extremity sensorimotor exam otherwise normal, nonfocal. Discussed findings with patient He is stable for transfer to regular floor Continue to mobilize out of bed as tolerated At risk for alcohol withdrawal Plan to check follow-up CT scan head in 2 days, earlier if any change in neurologic exam. (Cory Goode MD) Patel Mueller May 26, 2017 09:53 Cory Goode MD May 26, 2017 21:41
--- NOTE | 2017-05-26 10:51 | HHI.CCPN ---
Subjective Remarks/Hospital Course This is a 76-year-old male with a history of coronary artery disease status post bypass surgery, alcoholism, and prior subdural hematomas who presents after his found him on the tile floor around 5 PM on 05/24. His reported to the ER that it took about 3-4 minutes from become responsive after she found him. The patient does not remember anything after lunch. Patient endorses drinking at least 20-25 ounces of liquor daily. The patient's denied any recent knowledge of his drinking habits. In the ER, patient was found to have acute bifrontal subdural hemorrhage without evidence of mass effect. He is transferred to the intensive care unit for close monitoring. Neurosurgery was consulted and elects conservative management this time. The patient denies any complaints other than headache. Otherwise, the review of systems is negative. Subjective 05/26: Continues to have intermittent expressive aphasia. No focal neurological deficits including strength or sensation. Afebrile. Objective Vital Signs Date Time Temp Pulse Resp B/P (MAP) Pulse Ox O2 Delivery O2 Flow Rate FiO2 05/26/17 07:35 97 21 05/26/17 06:00 52 05/26/17 04:00 98.9 22 142/70 (94) 05/24/17 21:35 Room Air Intake and Output 05/26/17 05/26/17 05/27/17 08:00 16:00 00:00 Intake Total 341 ml Balance 341 ml Result Diagram: 05/24/17 1840 05/25/17 0502 Imaging Last Impressions Head CT 05/25/17 0500 Signed Impressions: Service Date/Time: Thursday, May 25, 2017 04:19 - CONCLUSION: Slight interval additional evolution of left temporal parenchymal contusion. Yonas Camp MD Chest X-Ray 05/24/171831 Signed Impressions: Service Date/Time: Wednesday, May 24, 2017 19:12 - CONCLUSION: No acute disease. No significant change has occurred. Tomas Weber MD Cervical Spine CT 05/24/171831 Signed Impressions: Service Date/Time: Wednesday, May 24, 2017 19:31 - CONCLUSION: 1. No acute bony fracture. 2. Primary degenerative changes involving the cervical spine 3. 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 Tomas Weber MD Objective Remarks GENERAL: Elderly male, lying in bed, evidence of trauma to the forehead HEENT: Normocephalic. Small subcentimeter laceration over the right eyebrow. Pupils equal, round, reactive, conjugate. Mucous membranes are moist NECK: Trachea is midline. There is no JVD. CHEST: And unlabored. Equal chest rise. CARDIOVASCULAR: Normal rate, regular rhythm. Sinus by telemetry ABDOMEN: Soft, nontender, nondistended. No guarding. MUSCULOSKELETAL: Pulses 2+. No peripheral edema. There is a large skin tear approximately 4 cm over the dorsum of the right wrist. As is dressed in a Kerlix bandage NEUROLOGICAL: RASS 0. GCS 15. Alert and oriented. Follows commands in all 4 extremity. Muscle skeletal strength 5/5 in all 4 extremity. No gross focal sensory A/P Assessment and Plan Assessment: 76-year-old male with alcoholism and prior subdural hemorrhages who presents with acute subdural hemorrhage secondary to mechanical fall. Most likely his difficulty in remembering earlier events secondary to his intoxication, as his alcohol level was elevated 215 on arrival. We will admit him to the neuro ICU for frequent neuro checks and obtain serial head CT. Agree with plan for conservative management given lack of neuro deficits. Acute Subdural Hematoma - frequent neuro checks - serial head CT - avoid anticoagulation EtOH Abuse - iv thiamine - watch for withdraws Hypertension - goal sbp < 160 -- Restart lisinopril at 10 mg by mouth daily. And carvedilol 25 mg twice a day As needed Nitropaste/enalaprilat/hydralazine Dyslipidemia - Currently on pravastatin 40 mill grams daily. Substitute for atorvastatin 20 mg daily SCDs Famotidine Patient is stable from a critical care medicine standpoint. Neurosurgery is clear to transfer to neuro floor. We'll sign off. Routine hospitalist consult placed. Buck Chan MD May 26, 2017 10:51
[2017-05-26] MEDS ORDERED: ENALAPRILAT 2.5 MG/2 ML VIAL IV PUSH PRN (11:00)
[2017-05-26] MEDS ORDERED: hydrALAZINE HCL 20 MG/ML VIAL IV PUSH PRN (11:00)
[2017-05-26] MEDS ORDERED: NITROGLYCERIN 2% OINT 1 GM PACKET TOPICAL PRN (12:29)
[2017-05-26] MEDS: CARVEDILOL 12.5 MG TAB PO SCH (20:11)
[2017-05-27] VITALS (8 sets, daily range): BP systolic 130–153; BP diastolic 64–76; PULSE 49–80; RESP 15–19; TEMP 97.9–98.8; O2SAT 95–97
[2017-05-27] MEDS: THIAMINE INJ 100 MG in SODIUM CHLORIDE 0.9% INJ 100 ML IV SCH (01:32)
[2017-05-27] MEDS: CHLORHEXIDINE GLUCONATE 2 % 1 PACK (2 CLOTHS) TOP SCH (01:35)
[2017-05-27 07:26] LABS: MEAN CELL VOLUME 101.6 FL (80.0-100.0); MEAN CORPUSCULAR HEMOGLOBIN 34.8 PG (27.0-34.0); MEAN CORPUSCULAR HGB CONC 34.3 % (32.0-36.0); PLATELET COUNT 97 TH/MM3 (150-450); RED BLOOD COUNT 3.15 MIL/MM3 (4.50-5.90); RED CELL DISTRIBUTION WIDTH 11.8 % (11.6-17.2); WHITE BLOOD COUNT 6.3 TH/MM3 (4.0-11.0)
[2017-05-27] MEDS: MULTIVITAMIN TAB PO SCH (07:29)
[2017-05-27] MEDS: LISINOPRIL 10 MG TAB PO SCH (07:29)
[2017-05-27] MEDS: BUDESONIDE-FORMOTEROL 80/4.5 MCG INHALER INH SCH ×2 (07:29→20:31)
[2017-05-27] MEDS: FOLIC ACID 1 MG TAB PO SCH (07:29)
[2017-05-27] MEDS: PRAVASTATIN SOD 40 MG TAB PO SCH (07:29)
[2017-05-27] MEDS: SODIUM CHLORIDE 0.9% FLUSH 10 ML FLUSH IV FLUSH SCH ×2 (07:30→20:31)
[2017-05-27] MEDS: CARVEDILOL 12.5 MG TAB PO SCH ×2 (07:30→20:31)
[2017-05-27] MEDS: NS + KCL 20 MEQ INJ 1,000 ML IV SCH ×2 (07:30→16:10)
[2017-05-27] MEDS: MULTIVITAMINS/MINERALS THERAPEUTIC TAB PO SCH (07:30)
[2017-05-27] MEDS: PANTOPRAZOLE SOD 40 MG DELAYED RELEASE TAB PO SCH (07:30)
[2017-05-27] MEDS: DOCUSATE SODIUM 50 MG/SENNA 8.6 MG TAB PO SCH ×2 (07:30→20:31)
[2017-05-27 07:46] LABS: REVIEW FLAG FINAL
[2017-05-27 08:01] LABS: MAGNESIUM 1.4 MG/DL (1.5-2.5); POTASSIUM 3.6 MEQ/L (3.5-5.1)
[2017-05-27 08:02] LABS: BICARBONATE 27.1 MEQ/L (21.0-32.0)
--- NOTE | 2017-05-27 09:29 | HHI.NSPN ---
(Patel Mueller) History Chief Complaint: Off balance when walking. (Patel Mueller) Interval History 05/25: 76-year-old male who states that he passed out and fell last evening. He recalls feeling faint and starting to fall. No definite seizure activity reported. He states that he has had several previous similar episodes, the last one being a few months ago. His was present at the time of his fall, and indicated that the patient was unresponsive for approximately 4 minutes. He presently complains of headache and mild nausea. No significant vertigo. No blurred vision or diplopia. No significant pain weakness or numbness in the extremities. He does have a history of significant alcohol use. 05/26: The patient is awake and alert when seen this morning. He does report a headache as well as some dizziness when he first sits or stands up. He continues to have difficulty finding the correct word and has obvious frustration with it. 05/27: This morning the patient is seen in rounds with Dr. Goode. The patient is asleep but awakens to voice. He states he is doing good. He reports that he did ambulate with Physical Therapy yesterday. He did feel a little off balance. He lives in [place] with his and would like to return home as soon as possible. He states that his says she will do all the driving. The undersigned acts as a scribe for the remainder of this note. (Patel Mueller) System Review Comments The patient denies any double vision, headache, numbness or tingling. He reports his breathing is "okay" but he does have a cough secondary to his COPD. He does state his balance his off when walking. (Patel Mueller) Exam Results 05/25/17 05/25/17 05/26/17 05/26/17 05/27/17 05/27/17 06:00 18:00 06:00 18:00 06:00 18:00 Intake Total 2000 ml 1225 ml 341 ml 860 ml 1725 ml Output Total 0 ml Balance 2000 ml 1225 ml 341 ml 860 ml 1725 ml Intake Oral 240 ml 1725 ml IV Total 2000 ml 1225 ml 101 ml 860 ml Output Urine Total 0 ml # Voids 4 2 5 # Bowel Movements 2 2 4 Vital Signs Date Time Temp Pulse Resp B/P (MAP) Pulse Ox O2 Delivery O2 Flow Rate FiO2 05/27/17 08:00 98.4 63 15 138/70 (92) 95 05/27/17 04:00 97.9 80 19 140/75 (96) 96 05/27/17 00:00 98.1 67 19 135/76 (95) 97 05/26/17 20:45 98.6 66 18 132/70 (90) 98 05/26/17 19:31 94 05/26/17 15:58 98.3 56 17 155/67 (96) 98 05/26/17 14:00 52 05/26/17 12:00 54 05/26/17 12:00 98.5 54 22 161/67 (98) 99 05/26/17 10:00 58 05/26/17 08:00 50 05/26/17 08:00 99.4 50 18 133/63 (86) 97 05/26/17 07:35 97 21 05/26/17 06:00 52 05/26/17 04:00 73 05/26/17 04:00 98.9 73 22 142/70 (94) 100 05/26/17 02:00 65 05/26/17 00:00 47 05/26/17 00:00 99.4 47 20 139/65 (89) 98 05/25/17 22:00 58 05/25/17 20:57 98 05/25/17 20:00 47 05/25/17 20:00 99.2 47 24 127/60 (82) 99 05/25/17 18:00 67 05/25/17 16:00 54 05/25/17 16:00 98.7 54 18 147/64 (91) 99 05/25/17 14:00 48 05/25/17 12:00 46 05/25/17 12:00 99.2 46 19 124/95 (105) 98 05/25/17 10:00 50 05/25/17 08:56 98 21 05/25/17 08:00 98.8 50 32 146/67 (93) 95 05/25/17 08:00 50 05/25/17 06:00 49 05/25/17 04:00 63 05/25/17 04:00 99.1 63 24 121/59 (79) 98 05/25/17 02:00 60 05/25/17 00:00 55 05/25/17 00:00 99.0 55 24 135/61 (85) 98 05/24/17 22:45 66 05/24/17 22:45 99.0 66 24 98/56 (70) 99 05/24/17 22:10 68 20 118/64 (82) 97 05/24/17 21:35 73 18 118/64 (82) 96 Room Air 05/24/17 20:29 98 Room Air 05/24/17 20:25 75 18 129/73 (91) 98 Room Air 05/24/17 19:25 63 18 128/64 (85) 97 Room Air 05/24/17 18:50 98 Room Air 05/24/17 17:57 98.3 71 16 118/59 (78) 98 (Patel Mueller) Physical Examination The patient is asleep but awakens to voice. Clear to auscultation. His speech is clear and appropriate. He follows simple commands without difficulty. Sensation is intact to light touch to all extremities. Motor strength is strong and symmetrical to all extremities. (Patel Mueller) Lab, Micro, Other Results Recent Impressions Head CT 05/25/17 0500 Signed Impressions: Service Date/Time: Thursday, May 25, 2017 04:19 - CONCLUSION: Slight interval additional evolution of left temporal parenchymal contusion. Yonas Camp MD Head CT 05/24/171831 Signed Impressions: Service Date/Time: Wednesday, May 24, 2017 19:31 - CONCLUSION: 1. There is acute subarachnoid hemorrhage along the base of both frontal lobes, left temporal lobe and left mid parietal area. 2. There is a new acute subdural hematoma along the left falx near the cerebral vertex with 5 mm of separation. No significant mass effect or midline shift. Tomas Weber MD Chest X-Ray 05/24/171831 Signed Impressions: Service Date/Time: Wednesday, May 24, 2017 19:12 - CONCLUSION: No acute disease. No significant change has occurred. Tomas Weber MD Cervical Spine CT 05/24/17 1832 Signed Impressions: Service Date/Time: Wednesday, May 24, 2017 19:31 - CONCLUSION: 1. No acute bony fracture. 2. Primary degenerative changes involving the cervical spine 3. 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 Tomas Weber MD Laboratory Tests Test 05/24/17 18:40 05/24/17 19:30 05/24/17 23:59 05/25/17 05:02 White Blood Count 7.3 TH/MM3 Red Blood Count 3.51 MIL/MM3 Hemoglobin 12.0 GM/DL Hematocrit 35.1 % Mean Corpuscular Volume 100.0 FL Mean Corpuscular Hemoglobin 34.2 PG Mean Corpuscular Hemoglobin Concent 34.2 % Red Cell Distribution Width 11.8 % Platelet Count 127 TH/MM3 Mean Platelet Volume 8.4 FL Neutrophils (%) (Auto) 75.7 % Lymphocytes (%) (Auto) 15.6 % Monocytes (%) (Auto) 6.5 % Eosinophils (%) (Auto) 2.0 % Basophils (%) (Auto) 0.2 % Neutrophils # (Auto) 5.6 TH/MM3 Lymphocytes # (Auto) 1.1 TH/MM3 Monocytes # (Auto) 0.5 TH/MM3 Eosinophils # (Auto) 0.1 TH/MM3 Basophils # (Auto) 0.0 TH/MM3 CBC Comment DIFF FINAL Differential Comment Prothrombin Time 10.0 SEC Prothromb Time International Ratio 0.9 RATIO Activated Partial Thromboplast Time 25.2 SEC Blood Urea Nitrogen 26 MG/DL 24 MG/DL Creatinine 1.50 MG/DL 1.08 MG/DL Random Glucose 86 MG/DL 63 MG/DL Total Protein 6.4 GM/DL 5.8 GM/DL Albumin 2.9 GM/DL 2.6 GM/DL Calcium Level 7.6 MG/DL 7.6 MG/DL Magnesium Level 1.6 MG/DL Alkaline Phosphatase 136 U/L 125 U/L Aspartate Amino Transf (AST/SGOT) 131 U/L 111 U/L Alanine Aminotransferase (ALT/SGPT) 76 U/L 67 U/L Total Bilirubin 0.7 MG/DL 0.7 MG/DL Sodium Level 141 MEQ/L 143 MEQ/L Potassium Level 3.1 MEQ/L 3.6 MEQ/L Chloride Level 106 MEQ/L 108 MEQ/L Carbon Dioxide Level 26.6 MEQ/L 24.4 MEQ/L Anion Gap 8 MEQ/L 11 MEQ/L Estimat Glomerular Filtration Rate 46 ML/MIN 67 ML/MIN Total Creatine Kinase 87 U/L Troponin I LESS THAN 0.02 NG/ML B-Type Natriuretic Peptide 84 PG/ML Ethyl Alcohol Level 217 MG/DL Urine Color YELLOW Urine Turbidity SLIGHT Urine pH 6.0 Urine Specific [place] 1.018 Urine Protein 100 mg/dL Urine Glucose (UA) NEG mg/dL Urine Ketones NEG mg/dL Urine Occult Blood LARGE Urine Nitrite NEG Urine Bilirubin NEG Urine Leukocyte Esterase NEG Urine RBC 0-3 /hpf Urine WBC 3-5 /hpf Urine Squamous Epithelial Cells 0-5 /hpf Urine Hyaline Casts 6-9 /lpf Urine Fine Granular Casts 10-15 /lpf Microscopic Urinalysis Comment CULT NOT INDICATED Urine Opiates Screen NEG Urine Barbiturates Screen NEG Urine Amphetamines Screen NEG Urine Benzodiazepines Screen NEG Urine Cocaine Screen NEG Urine Cannabinoids Screen NEG Nasal Screen MRSA (PCR) MRSA NOT DETECTED Test 05/27/17 05:49 White Blood Count 6.3 TH/MM3 Red Blood Count 3.15 MIL/MM3 Hemoglobin 11.0 GM/DL Hematocrit 32.0 % Mean Corpuscular Volume 101.6 FL Mean Corpuscular Hemoglobin 34.8 PG Mean Corpuscular Hemoglobin Concent 34.3 % Red Cell Distribution Width 11.8 % Platelet Count 97 TH/MM3 Mean Platelet Volume 10.3 FL Blood Urea Nitrogen 14 MG/DL Creatinine 0.83 MG/DL Random Glucose 91 MG/DL Calcium Level 7.7 MG/DL Phosphorus Level 1.8 MG/DL Magnesium Level 1.4 MG/DL Sodium Level 141 MEQ/L Potassium Level 3.6 MEQ/L Chloride Level 108 MEQ/L Carbon Dioxide Level 27.1 MEQ/L Anion Gap 6 MEQ/L Estimat Glomerular Filtration Rate 90 ML/MIN (Patel Mueller) Medical Decision Making Impression and Plan Impression: 1. Traumatic brain injury 2. Alcohol abuse 3. Tobacco abuse 4. Hypertension 5. History of CAD 6. History COPD Plan: CT brain this morning. (Patel Mueller) Attending Statement I have personally seen and examined the patient on the date of this note. Pertinent documentation and study results have been reviewed by the undersigned. I have personally developed the treatment plan and performed medical decision making. Agree with findings, exam, and treatment plan as noted above. Patient remains awake and alert today. Mental status gradually improving. No focal cranial nerve or extremity deficit on examination. 05/27/17 CT scan head images reviewed. This study reveals continued evolution of the right frontal and left temporal contusions with then left falx-tentorial subdural hematoma. No significant mass effect. Discussed with patient He is stable for discharge home from a neurosurgery standpoint. Advised to avoid NSAIDs and aspirin for the next month. No alcohol. He states that his will be available to help care for him. Signs and symptoms to watch for fully discussed. He will need follow-up CT scan head in approximately 10-to 14 days which can be accomplished outpatient. (Cory Goode MD) Patel Mueller May 27, 2017 09:29 Cory Goode MD May 27, 2017 18:56
--- NOTE | 2017-05-27 10:28 | HHI.PR ---
Subjective Remarks Patient seen and examined He has some expressive aphasia Denies any headaches or visual changes Objective Vitals Vital Signs Date Time Temp Pulse Resp B/P (MAP) Pulse Ox O2 Delivery O2 Flow Rate FiO2 05/27/17 10:07 49 05/27/17 08:00 98.4 63 15 138/70 (92) 95 05/27/17 04:00 97.9 80 19 140/75 (96) 96 05/27/17 00:00 98.1 67 19 135/76 (95) 97 05/26/17 20:45 98.6 66 18 132/70 (90) 98 05/26/17 19:31 94 05/26/17 15:58 98.3 56 17 155/67 (96) 98 05/26/17 14:00 52 05/26/17 12:00 54 05/26/17 12:00 98.5 54 22 161/67 (98) 99 I/O 05/26/17 05/26/17 05/26/17 05/27/17 05/27/17 05/27/17 07:00 15:00 23:00 07:00 15:00 23:00 Intake Total 341 ml 860 ml 900 ml 825 ml Output Total 0 ml Balance 341 ml 860 ml 900 ml 825 ml Intake Oral 240 ml 900 ml 825 ml IV Total 101 ml 860 ml Output Urine Total 0 ml # Voids 2 1 4 # Bowel Movements 2 0 4 Result Diagram: 05/27/17 0549 05/27/17 0549 Imaging Last Impressions Head CT 05/25/17 0500 Signed Impressions: Service Date/Time: Thursday, May 25, 2017 04:19 - CONCLUSION: Slight interval additional evolution of left temporal parenchymal contusion. Yonas Camp MD Chest X-Ray 05/24/171831 Signed Impressions: Service Date/Time: Wednesday, May 24, 2017 19:12 - CONCLUSION: No acute disease. No significant change has occurred. Tomas Weber MD Cervical Spine CT 05/24/171831 Signed Impressions: Service Date/Time: Wednesday, May 24, 2017 19:31 - CONCLUSION: 1. No acute bony fracture. 2. Primary degenerative changes involving the cervical spine 3. 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 Tomas Weber MD Objective Remarks GENERAL: NAD SKIN: Warm and dry. HEAD: Normocephalic. EYES: No scleral icterus. No injection or drainage. NECK: Supple, trachea midline. No JVD or lymphadenopathy. CARDIOVASCULAR: Regular rate and rhythm without murmurs, gallops, or rubs. RESPIRATORY: Breath sounds equal bilaterally. No accessory muscle use. GASTROINTESTINAL: Abdomen soft, non-tender, nondistended. MUSCULOSKELETAL: No cyanosis, or edema. BACK: Nontender without obvious deformity. No CVA tenderness. A/P Assessment and Plan 76-year-old man with Acute Subdural Hematoma -Management per neurosurgery Repeat head CT today EtOH Abuse -Rally pack, CIWA protocol iv thiamine - watch for withdraws Hypertension Continue lisinopril 10 mg by mouth daily and carvedilol 25 mg twice a day Dyslipidemia Continue atorvastatin 20 mg daily SCDs:DVT prophylaxis Tex Bonilla MD May 27, 2017 10:28
--- NOTE | 2017-05-27 10:30 | RADRPT ---
EXAM DATE/TIME: 05/27/2017 10:07 [facility] COMPARISON: CT BRAIN W/O CONTRAST, May 24, 2017, 19:31. CT BRAIN W/O CONTRAST, May 25, 2017, 4:19. INDICATIONS : Fall three days ago. RADIATION DOSE: 56.35 CTDIvol (mGy) MEDICAL HISTORY : Cardiovascular disease. Hypertension. SURGICAL HISTORY : CABG Appendectomy. ENCOUNTER: Initial ACUITY: 3 days PAIN SCALE: 0/10 LOCATION: cranial TECHNIQUE: Multiple contiguous axial images were obtained of the head. Using automated exposure control and adj ustment of the mA and/or kV according to patient size, radiation dose was kept as low as reasonably a chievable to obtain optimal diagnostic quality images. DICOM format image data is available electro nically for review and comparison. FINDINGS: No new areas of hemorrhage are observed. The subdural hemorrhage tracking along the falx and left por tion of the tentorium as well as the parenchymal hemorrhagic contusion involving the left temporal lo be and right frontal lobe continue to show a decrease in density coinciding with maturation. No midli ne shift or herniation. Periventricular chronic small vessel ischemic change again noted. The calvari um is intact. Chronic ethmoid sinus disease on the right. Mastoid air cells are clear. CONCLUSION: 1. Continued maturation of the hemorrhagic contusions of the right frontal lobe, left temporal lobe, and subdural hematoma tracking along the falx and left tentorium. No new source of hemorrhage or sign s of herniation. Josef Edouard Jr., MD on May 27, 2017 at 10:25 Board Certified Radiologist. This report was verified electronically.
[2017-05-27] MEDS ORDERED: ACET1TAB86 PO (14:08)
--- NOTE | 2017-05-27 14:11 | HHI.DCPOC ---
Discharge Care Plan Diagnosis: (1) Subdural hematoma (2) Alcohol abuse Your Health Problems Are: Difficulty with ADL Exercise Tolerance Goals to Promote Your Health * To prevent worsening of your condition and complications * To maintain your health at the optimal level No lifting, bending, pushing, pulling or other strenuous activity. Take the pain medication as prescribed. Avoid taking any medication that contains aspirin or NSAIDs (ibuprofen, naproxen , Motrin, Advil, Naprosyn) for at least a month. Follow up with your Primary Care Provider in 2 to 3 weeks for a repeat [address] brain. You should follow up sooner if you still are having speech difficulties so as to arrange Speech Therapy. Directions to Meet Your Goals Take your medications as prescribed Follow your dietary instruction Follow activity as directed No lifting, bending, pushing, pulling or other strenuous activity. Take the pain medication as prescribed. Avoid taking any medication that contains aspirin or NSAIDs (ibuprofen, naproxen , Motrin, Advil, Naprosyn) for at least a month. Follow up with your Primary Care Provider in 2 to [address] brain. You should follow up sooner if you still are having speech difficulties so as to arrange Speech Therapy. Keep your appointments as scheduled Take your immunizations and boosters as scheduled If your symptoms worsen call your PCP, if no PCP go to Urgent Care Center or Emergency Room Smoking is Dangerous to Your Health. Avoid second hand smoke Call the 24-hour hour crisis hotline for domestic abuse at Patel Mueller May 27, 2017 14:10 Cory Goode MD May 27, 2017 18:56
--- NOTE | 2017-05-27 14:14 | HHI.DS ---
Patel Mueller[facility]na [facility] 05/27/17 1414: Discharge Summary Admission Date May 24, 2017 at 20:08 Discharge Date: May 28, 2017 Admitting Diagnosis subdural hematoma, alcohol abuse (1) Subdural hematoma Diagnosis: Principal ICD Code: I62.00 - Nontraumatic subdural hemorrhage, unspecified Status: Acute (2) Alcohol abuse Diagnosis: Secondary ICD Code: F10.10 - Alcohol abuse, uncomplicated Status: Acute Brief History 76-year-old male who states that he passed out and fell last evening. He recalls feeling faint and starting to fall. No definite seizure activity reported. He states that he has had several previous similar episodes, the last one being a few months ago. His was present at the time of his fall, and indicated that the patient was unresponsive for approximately 4 minutes. He presently complains of headache and mild nausea. No significant vertigo. No blurred vision or diplopia. No significant pain weakness or numbness in the extremities. He does have a history of significant alcohol use. CBC/BMP: 05/27/17 0549 05/27/17 0549 Significant Findings Laboratory Tests Test 05/24/17 18:40 05/24/17 19:30 05/24/17 23:59 05/25/17 05:02 Red Blood Count 3.51 MIL/MM3 (4.50-5.90) Hemoglobin 12.0 GM/DL (13.0-17.0) Hematocrit 35.1 % (39.0-51.0) Mean Corpuscular Hemoglobin 34.2 PG (27.0-34.0) Platelet Count 127 TH/MM3 (150-450) Neutrophils (%) (Auto) 75.7 % (16.0-70.0) Blood Urea Nitrogen 26 MG/DL (7-18) 24 MG/DL (7-18) Creatinine 1.50 MG/DL (0.60-1.30) Albumin 2.9 GM/DL (3.4-5.0) 2.6 GM/DL (3.4-5.0) Calcium Level 7.6 MG/DL (8.5-10.1) 7.6 MG/DL (8.5-10.1) Alkaline Phosphatase 136 U/L (45-117) 125 U/L (45-117) Aspartate Amino Transf (AST/SGOT) 131 U/L (15-37) 111 U/L (15-37) Potassium Level 3.1 MEQ/L (3.5-5.1) Estimat Glomerular Filtration Rate 46 ML/MIN (>89) 67 ML/MIN (>89) Troponin I LESS THAN 0.02 NG/ML Ethyl Alcohol Level 217 MG/DL (0-5) Urine Protein 100 mg/dL (NEG-TRACE) Urine Occult Blood LARGE (NEG) Urine Hyaline Casts 6-9 /lpf (RARE) Random Glucose 63 MG/DL (74-106) Total Protein 5.8 GM/DL (6.4-8.2) Chloride Level 108 MEQ/L (98-107) Test 05/27/17 05:49 Red Blood Count 3.15 MIL/MM3 (4.50-5.90) Hemoglobin 11.0 GM/DL (13.0-17.0) Hematocrit 32.0 % (39.0-51.0) Mean Corpuscular Volume 101.6 FL (80.0-100.0) Mean Corpuscular Hemoglobin 34.8 PG (27.0-34.0) Platelet Count 97 TH/MM3 (150-450) Calcium Level 7.7 MG/DL (8.5-10.1) Phosphorus Level 1.8 MG/DL (2.5-4.9) Magnesium Level 1.4 MG/DL (1.5-2.5) Chloride Level 108 MEQ/L (98-107) Hospital Course 05/25: 76-year-old male who states that he passed out and fell last evening. He recalls feeling faint and starting to fall. No definite seizure activity reported. He states that he has had several previous similar episodes, the last one being a few months ago. His was present at the time of his fall, and indicated that the patient was unresponsive for approximately 4 minutes. He presently complains of headache and mild nausea. No significant vertigo. No blurred vision or diplopia. No significant pain weakness or numbness in the extremities. He does have a history of significant alcohol use. 05/26: The patient is awake and alert when seen this morning. He does report a headache as well as some dizziness when he first sits or stands up. He continues to have difficulty finding the correct word and has obvious frustration with it. 05/27: The patient is asleep but awakens to voice. He states he is doing good. He reports that he did ambulate with Physical Therapy yesterday. He did feel a little off balance. He lives in [place] with his and would like to return home as soon as possible. He states that his says she will do all the driving. Pt Condition on Discharge: Good Discharge Disposition: Discharge Home Discharge Instructions DIET: Follow Instructions for: As Tolerated, No Restrictions ACTIVITIES You can perform: Full Weight Bearing Activities to Avoid: Contact Sports, Lifting/Bending, Strenuous Activity, Driving ADDITIONAL Activity Instructio: No lifting, bending, pushing, pulling or other strenuous activity. Additional Information Take the pain medication as prescribed. Avoid taking any medication that contains aspirin or NSAIDs (ibuprofen, naproxen , Motrin, Advil, Naprosyn) for at least a month. Follow up with your Primary Care Provider in 2 to [address] brain. You should follow up sooner if you still are having speech difficulties so as to arrange Speech Therapy. Cory Goode MD 05/27/17 1856: Discharge Summary CBC/BMP: 05/27/17 0549 05/27/17 0549 Patel Mueller May 27, 2017 14:14 Cory Goode MD May 27, 2017 18:56
[2017-05-28] VITALS: BP 131/64; PULSE 65; RESP 19; TEMP 97.7; O2SAT 96
[2017-05-28] MEDS: CHLORHEXIDINE GLUCONATE 2 % 1 PACK (2 CLOTHS) TOP SCH (00:36)
[2017-05-28 03:21] VITALS: PULSE 58
[2017-05-28 04:15] VITALS: BP_SYST 128; BP_SYST 145; BP_DIAS 84; PULSE 64; RESP 20; TEMP 97.6; O2SAT 97
[2017-05-28 08:00] VITALS: BP 140/89; PULSE 81; RESP 19; TEMP 98.4; O2SAT 99
--- NOTE | 2017-05-28 08:48 | HHI.NSPN ---
History Chief Complaint: Mild dizziness improves when he gets up slow. Interval History 05/28/17: Pt awake and alert. He is dressed and wanting to go home. Denies headaches. Mild dizziness when getting up but states this is better today. He states he knows he cannot drive and he knows he cannot do any activity that places him at risk of head injury such as climbing ladders. Review of Systems General: Negative for: fever, chills, insomnia Respiratory: Negative for: shortness of breath, cough, sputum Cardiovascular: Negative for: chest pain Gastrointestinal: Negative for: nausea, vomitting, diarrhea, constipation Exam Results Vital Signs Date Time Temp Pulse Resp B/P (MAP) Pulse Ox O2 Delivery O2 Flow Rate FiO2 05/28/17 08:00 98.4 81 19 140/89 (106) 99 05/27/17 13:18 21 05/24/17 21:35 Room Air Intake and Output 05/28/17 05/28/17 05/28/17 07:59 15:59 23:59 Intake Total 300 ml Output Total 400 ml Balance -100 ml Physical Examination Resp: CTA bilaterally Heart: NSR no murmurs Abd: Soft positive bs Skin: right periorbital ecchymosis. Muscle: Moves all 4 extremities well. Ambulates independently. Neuro: Pt awake and alert. Pupils equal. Follows commands. Speech clear and appropriate. Lab, Micro, Other Results Last Impressions Head CT 05/27/17 0000 Signed Impressions: Service Date/Time: Saturday, May 27, 2017 10:07 - CONCLUSION: 1. Continued maturation of the hemorrhagic contusions of the right frontal lobe, left temporal lobe, and subdural hematoma tracking along the falx and left tentorium. No new source of hemorrhage or signs of herniation. Josef Edouard Jr., MD Chest X-Ray 05/24/171831 Signed Impressions: Service Date/Time: Wednesday, May 24, 2017 19:12 - CONCLUSION: No acute disease. No significant change has occurred. Tomas Weber MD Cervical Spine CT 05/24/171831 Signed Impressions: Service Date/Time: Wednesday, May 24, 2017 19:31 - CONCLUSION: 1. No acute bony fracture. 2. Primary degenerative changes involving the cervical spine 3. 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 with right frontal and left temporal contusions stable on follow up CT head. P: Pt being discharged today He is returning home to [place]. He understands the restrictions. Discharge instructions written but Dr. Goode requested I see him before discharge. He is cleared for discharge. Tex Sweeney May 28, 2017 8:48 am
[2017-05-28 09:00] VITALS: PULSE 88
[2017-05-28] MEDS: BUDESONIDE-FORMOTEROL 80/4.5 MCG INHALER INH SCH (09:00)
[2017-05-28] MEDS: SODIUM CHLORIDE 0.9% FLUSH 10 ML FLUSH IV FLUSH SCH (09:00)
[2017-05-28] MEDS: DOCUSATE SODIUM 50 MG/SENNA 8.6 MG TAB PO SCH (09:00)
[2017-05-28] MEDS: MULTIVITAMINS/MINERALS THERAPEUTIC TAB PO SCH (09:00)
[2017-05-28] MEDS: LISINOPRIL 10 MG TAB PO SCH (09:19)
[2017-05-28] MEDS: FOLIC ACID 1 MG TAB PO SCH (09:19)
[2017-05-28] MEDS: MULTIVITAMIN TAB PO SCH (09:20)
[2017-05-28] MEDS: PRAVASTATIN SOD 40 MG TAB PO SCH (09:20)
[2017-05-28] MEDS: PANTOPRAZOLE SOD 40 MG DELAYED RELEASE TAB PO SCH (09:20)
[2017-05-28] MEDS: CARVEDILOL 12.5 MG TAB PO SCH (09:20)
[2017-05-29] MEDS ORDERED: THIAMINE HCL 100 MG TAB PO SCH (09:00)
== END 2017-05-28 11:24 | disposition home or self-care (01) | DRG 83 ==
LOC: PHEFT 17:44 → PHEDA 20:08 → N03B 22:37 → N05A 05-26 15:00
PROVIDERS: ADMIT Neurological Surgery; ATTEND Neurological Surgery
DX: S06.5X9A Traumatic subdural hemorrhage with loss of consciousness of unspecified duration, initial encounter (principal); R47.01 Aphasia; J44.9 Chronic obstructive pulmonary disease, unspecified; S05.11XA Contusion of eyeball and orbital tissues, right eye, initial encounter; I25.10 Atherosclerotic heart disease of native coronary artery without angina pectoris; I10 Essential (primary) hypertension; I25.2 Old myocardial infarction; E78.5 Hyperlipidemia, unspecified; R55 Syncope and collapse; F10.220 Alcohol dependence with intoxication, uncomplicated; F17.210 Nicotine dependence, cigarettes, uncomplicated; W18.30XA Fall on same level, unspecified, initial encounter; Y90.7 Blood alcohol level of 200-239 mg/100 ml; Z88.5 Allergy status to narcotic agent; Z95.1 Presence of aortocoronary bypass graft
CPT/HCPCS: 70450; 71010; 72125; 80048; 80053; 80307; 81001; 82550; 83735; 83880; 84100; 84484; 85025; 85027; 85610; 85730; 87641; 93005; 94150; 96360; J3411; J3480; J7030